=== PATIENT | female | born 1945 | race Two or more races ===

== ENCOUNTER 2018-09-27 10:38 | Outpatient (CLI) | payer OTHER ==
[~2018-09-27 10:38] MED LIST: BUMETANIDE0.25 MG/ML; TRANEXAMIC ACID25 GM; XOPENEX HFA15 GM; [UNRECOGNIZED DRUG - OTHER]
== END 2018-09-27 17:00 | disposition home or self-care (01) ==
LOC: TOM 10:38
DX: J84.112 Idiopathic pulmonary fibrosis (principal)

== ENCOUNTER 2019-05-30 16:55 | Emergency (ER) | payer OTHER ==
[~2019-05-30] VITALS: Ht 157.5 cm; Wt 68.0 kg
== END 2019-05-30 20:25 | disposition home or self-care (01) ==
LOC: ER 16:55
DX: R19.7 Diarrhea, unspecified (principal)

== ENCOUNTER 2022-05-30 11:13 | Outpatient (CLI) | payer OTHER | END 2022-05-30 11:30 | disposition home or self-care (01) | LOC: PPH VACUNA 11:13 | PROVIDERS: ATTEND Emergency Medicine Pediatric Emergency Medicine | DX: Z23 Encounter for immunization (principal) ==

== ENCOUNTER 2023-12-17 15:10 | Outpatient (CLI) | payer OTHER | END 2023-12-17 15:17 | disposition home or self-care (01) | LOC: RAD 15:10 | PROVIDERS: ATTEND Internal Medicine Pulmonary Disease | DX: J44.1 Chronic obstructive pulmonary disease with (acute) exacerbation (principal) ==